=== PATIENT | male | born 1940 | race Caucasian/White ===

== ENCOUNTER → 2016-06-16 | Outpatient (CLI) | payer OTHER ==
[~2016-06-16] MED LIST: ADVAIR 250-501 EACH INH; ADVAIRDISKUS INH; ALBUTEROL INH INH; CARDIZEM CD180 MG PO; CLARITIN10 MG PO; FLECAINIDE ACE100 MG PO; FLONASE 0.05%50 MCG NASAL; IBUPROFEN 400400 M1 PO; LEVAQUIN 500 M500 M4 PO; MINERAL PO; MULTIVITAM9 MG/15 ML PO; SINGULAIR 10 MG10 M1 PO; VENTOLIN HFA INH8 GM INH; ZYRTEC10 M2 PO
== END ==
LOC: RAD 13:20
DX: R05 Cough (principal)